=== PATIENT | male | born 1980 | race African-American/Black ===

== ENCOUNTER 2016-06-15 13:38 | Emergency (ER) | payer OTHER ==
[2016-06-15] MEDS ORDERED: ZOFRAN IV ONE (15:54)
[2016-06-15] MEDS ORDERED: NS 1,000 ML IV ONE (15:54)
[2016-06-15 16:01] LABS: MANUAL DIFF NEEDED? NO
--- NOTE | 2016-06-15 16:02 | PROVIDER DOCUMENTATION ---
HPI-General Adult - General Chief Complaint: N/V/D Stated Complaint: n/v abd pain Time Seen by Provider: 06/15/16 15:18 Source: patient Allergies/Adverse Reactions: Patient Allergies Allergy/AdvReac Type Severity Reaction Status Date / Time carisoprodol [From Soma] Allergy Severe ANAPHYLAXIS Verified 05/05/16 10:56 ibuprofen Allergy Intermediate SWELLING Verified 05/05/16 10:56 Home Medications: Lisinopril 20 mg PO DAILY 06/15/16 - History of Present Illness -Gen Adult Nature of Presenting Problems: Pt is a 36 yom who came to the ED with a cc of N/V/D and abdominal pain. Pt reports he waited for four days until he came to the ED. Pt reports he has blood in his vomit and stool. Location of Pain/Injury: reports: abdomen Pain Radiation: reports: no radiation Quality of Pain: reports: cramping Severity: reports: mild Onset/Duration: reports: 4 days ago Timing: reports: still present Context/Activities at Onset: reports: none Modifying Factors: improves with: defecating, vomiting Associated Symptoms: reports: diarrhea, nausea, vomiting Similar Symptoms Previously?: No Recently seen or treated by another doctor?: No Review of Systems - Adult - REVIEW OF SYSTEMS - ADULT Constitutional: denies: chills, fever Eyes: reports: no symptoms reported Ears, Nose, Mouth & Throat: denies: sinus problem, loose teeth Cardiovascular: reports: no symptoms reported Respiratory: denies: pleurisy, wheezing Gastrointestinal: reports: diarrhea, nausea, vomiting. denies: difficulty swallowing, frequent heartburn, rectal bleeding Genitourinary: reports: no symptoms reported Musculoskeletal: denies: joint pain, muscle aches Integumentary: reports: no symptoms reported Neurological: reports: no symptoms reported Psychiatric: reports: no symptoms reported Endocrine: reports: no symptoms reported Hematologic/Lymphatic: reports: no symptoms reported Allergic/Immunologic: reports: no symptoms reported All Other Systems: Reviewed and Negative Past History - Adult - PAST MEDICAL HISTORY-ADULT Review of Records: reports: Old Records Reviewed, Nursing Assessment Review Major Childhood Illnesses: reports: denies history Cardiovascular: reports: HTN, hyperlipidemia Respiratory: reports: denies history Gastrointestinal: reports: GERD Obstetrical/Gynecological: reports: denies history Genitourinary: reports: denies history Musculoskeletal: reports: chronic pain Neurological: reports: headaches/migraines Psychiatric: reports: anxiety (social), depression Endocrine/Immune: reports: Diabetes Other Conditions: reports: denies history Additional History: freq ER visits - PRIOR SURGERIES/PROCEDURES Surgical/Procedure History: reports: other (craniotomy as child) - IMMUNIZATION STATUS Childhood Immunizations: See Nurse Assessment Flu Vaccine: See Nurse Assessment - FAMILY HISTORY Family History: reviewed, not pertinent Physical Exam-General - PHYSICAL EXAM-ADULT Initial Vital Signs Reviewed: Yes - CONSTITUTIONAL General Appearance: appears well, alert, no apparent distress - EYES Eyes: PERRL/EOMI, pink conjunctivae - HEAD, EARS, NOSE, MOUTH & THROAT HENMT: normocephalic/atraumatic, moist mucous membranes, normal ENT inspection - NECK Neck: non-tender, full range of motion, normal inspection - RESPIRATORY Respiratory: chest non-tender, lungs clear, normal breath sounds - CARDIOVASCULAR Cardiovascular: normal peripheral pulses, regular rate, rhythm, no edema - GASTROINTESTINAL (ABDOMEN) Abdominal Exam: normal bowel sounds, non tender, soft - LYMPHATIC Lymphatic: no adenopathy - MUSCULOSKELETAL Back Exam: normal inspection, no CVA tenderness, no vertebral tenderness Extremity: normal range of motion, non-tender, normal gait - SKIN Integumentary: normal color, normal turgor, warm/dry - NEUROLOGIC Neurologic: grossly normal, no motor/sensory deficits - PSYCHIATRIC Psych/Mental Status: normal mood/affect, normal thought content, normal thought process, oriented x 3 Progress - PLAN OF CARE/RESULTS Progress/Plan/Lab Results: Vital Signs - 24 hr 06/15/16 13:44 Temperature 98.0 F Pulse Rate 72 Respiratory 18 Rate Blood Pressure 156/104 O2 Sat by Pulse 100 Oximetry Orders Category Date Time Status Saline Loc NOW Care 06/15/16 15:54 Active NPO Diet 06/15/16 13:47 Active ALCOHOL BLOOD Stat Lab 06/15/16 15:54 Uncollected AMYLASE [CHEM] Stat Lab 06/15/16 15:46 Ordered CBC WITH ELECTRONIC DIFF [HEME] Stat Lab 06/15/16 15:46 Ordered COMPREHENSIVE METABOLIC PANEL [CHEM] Stat Lab 06/15/16 15:46 Ordered LIPASE [CHEM] Stat Lab 06/15/16 15:46 Ordered MAGNESIUM [CHEM] Stat Lab 06/15/16 15:54 Uncollected OCCULT BLOOD DIAGNOSTIC [STOOL] Stat Lab 06/15/16 15:53 Ordered PROTIME WITH INR [COAG] Stat Lab 06/15/16 15:54 Uncollected PTT [COAG] Stat Lab 06/15/16 15:54 Uncollected UA NIMS W/REFLEX CULT [URINALYSIS] Stat Lab 06/15/16 15:55 Uncollected URINALYSIS [URINALYSIS] Stat Lab 06/15/16 13:47 Uncollected URINE DRUG SCREEN Stat Lab 06/15/16 15:55 Uncollected 0.9% Sodium Chloride Inj [Ns] 1,000 ml Med 06/15/16 15:54 Active IV 999 mls/hr Ondansetron [Zofran] Med 06/15/16 15:54 Discontinued 8 mg IV NOW ONE Departure - Departure Time of Disposition Order: 17:53 DIAGNOSIS: GI bleed Qualifiers: GI bleed type/associated pathology: unspecified peptic ulcer Qualified Code(s) : K27.4 - Chronic or unspecified peptic ulcer, site unspecified, with hemorrhage Disposition: HOME 01 Certified Medical Emergency: Emergent Condition: Good Referrals: None,PCP [Primary Care Provider] - Farhan Bashir MD [STAFF PHYSICIAN] - Attestation - Scribe Verification/Attestation Scribe:: Celina Blue Acting as Scribe for:: Luh Albright Scribe documention review:: This chart was documented by a scribe and accurately reflects the service the provider performed and the decisions made by the provider.
[2016-06-15 16:07] LABS: BASO% 0.1 % (0.0-0.8); EOS# 0.01 X1000 (0.0-0.7); EOS% 0.1 % (0.0-10.0); HEMATOCRIT 52.5 % (42.0-52.0); HEMOGLOBIN 18.3 g/dL (14.0-18.0); IMM GRAN# 0.03 X1000 (0.0-0.04); IMM GRAN% 0.4 % (0.0-0.5); LYMPH# 1.29 X1000 (1.2-3.4); LYMPH% 15.7 % (20.5-51.1); MCH 31.9 PG (27-31); MCHC 34.9 g/dL (33-37); MCV 91.6 FL (81-99); MONO# 0.32 X1000 (0.11-0.59); MONO% 3.9 % (1.7-9.3); MPV 10.5 FL (7.4-10.4); NEUT% 79.8 % (42.2-75.2); PLT 247 X1000 (130-400); RBC 5.73 XMIL (4.7-6.1)
[2016-06-15 16:15] LABS: INR 1.06; PROTIME 11.2 Seconds (9.2-11.7)
[2016-06-15 16:37] LABS: AGAP 15; ALBUMIN 4.7 g/dL (3.5-5.0); ALKALINE PHOSPHATASE 73 U/L (32-122); AMYLASE 79 U/L (20-200); BUN 12 mg/dL (8-22); CALCIUM 9.3 mg/dL (8.8-10.2); CHLORIDE 94 mmol/L (98-107); COSMO 266; GOT 15 U/L (10-34); GPT 13 U/L (10-44); LIPASE 20 U/L (13-60); POTASSIUM 3.3 mmol/L (3.5-5.1); SODIUM 133 mmol/L (136-145); TCO2 24 mmol/L (25-35); TOTAL BILIRUBIN 0.56 mg/dL (0.20-1.00); TOTAL PROTEIN 8.3 g/dL (6.3-8.3)
[2016-06-15] MEDS ORDERED: KLOR-CON PO ONE (17:50)
[2016-06-15 17:51] LABS: URINE CULTURE NEEDED? NO; URINE MICRO REVIEW NEEDED? NO; URINE SOURCE CLEAN CATCH
[2016-06-15 18:02] LABS: BILIRUBIN URINE NEGATIVE (NEGATIVE); BLOOD URINE NEGATIVE (NEGATIVE); COLOR YELLOW; GLUCOSE URINE NEGATIVE (NEGATIVE); LEUKOCYTES URINE NEGATIVE (NEGATIVE); NITRITE URINE NEGATIVE (NEGATIVE); PROTEIN URINE TRACE mg/dL (NEGATIVE); SP GRAVITY URINE 1.025; TURBIDITY URINE CLEAR (CLEAR); UROBILINOGEN URINE NORMAL (NORMAL)
[2016-06-15 18:03] LABS: UR EPITHELIAL CELLS <10 /HPF (<10); URINE BACTERIA NEGATIVE /HPF; URINE RBC <10 /HPF (<10); URINE WBC <10 /HPF (<10)
[2016-06-15 18:18] LABS: UR AMPHETAMINES QUAL NONE DETECTED (NONE DETECT); UR BARBITUATES QUAL NONE DETECTED (NONE DETECT); UR BENZODIAZEPIN QUAL NONE DETECTED (NONE DETECT); UR CANNABINOIDS QUAL PRESUMPTIVE POSITIVE (NONE DETECT); UR COCAINE QUAL NONE DETECTED (NONE DETECT); UR METHADONE QUAL NONE DETECTED (NONE DETECT); UR OPIATES QUAL NONE DETECTED (NONE DETECT); UR OXYCODONE QUAL NONE DETECTED (NONE DETECT); UR PCP QUAL NONE DETECTED (NONE DETECT)
[2016-06-15] MEDS ORDERED: KLOR-CON ONE (19:02)
[2016-06-15 19:22] VITALS: BP 148/92
== END 2016-06-15 20:04 | disposition home or self-care (01) ==
LOC: EDBD → ED 13:38
DX: K27.4 Chronic or unspecified peptic ulcer, site unspecified, with hemorrhage (principal); R11.2 Nausea with vomiting, unspecified; R19.7 Diarrhea, unspecified; R10.9 Unspecified abdominal pain; I10 Essential (primary) hypertension; E78.5 Hyperlipidemia, unspecified; E11.9 Type 2 diabetes mellitus without complications; G89.29 Other chronic pain; Z79.899 Other long term (current) drug therapy; R51 Headache
CPT/HCPCS: 36415; 80053; 81001; 82150; 82272; 83690; 83735; 85025; 85610; 85730; 96374; G0480; J2405; J7030

== ENCOUNTER 2016-08-18 16:15 | Emergency (ER) | payer OTHER ==
[2016-08-18 16:45] VITALS: BP 153/115
--- NOTE | 2016-08-18 17:38 | PROVIDER DOCUMENTATION ---
HPI-Headache - General Chief Complaint: Headache Stated Complaint: FALL/HEAD INJURY Time Seen by Provider: 08/18/16 17:27 Source: patient Allergies/Adverse Reactions: Patient Allergies Allergy/AdvReac Type Severity Reaction Status Date / Time carisoprodol [From Soma] Allergy Severe ANAPHYLAXIS Verified 08/18/16 17:39 ibuprofen Allergy Intermediate SWELLING Verified 08/18/16 17:39 Home Medications: Home Medication List Medication Instructions Recorded Confirmed Last Taken Type Lisinopril 20 mg PO DAILY 06/15/16 08/18/16 08/18/16 06:00 History Labetalol [Trandate] 100 mg PO BID 06/30/16 08/18/16 08/18/16 06:00 History Prochlorperazine Maleate 5 mg PO Q4H PRN PRN #10 tablet 08/18/16 Unknown Rx [Compazine] - History of Present Illness-Headache Nature of Presenting Problem: This pt presents to ED with c/o headache that started yesterday afternoon when he fell walking to the store. Pt reports positive LOC. However, he is neurologically intact, alert and oriented x3, speech clear and intact. There is no obvious injury noted. No other issues or complaints. Headache Location: reports: temporal (R) Quality of Pain: reports: aching Severity: reports: moderate Onset/Duration: reports: last night Timing: reports: still present Headache Context: reports: head injury Any recent trauma/injury?: reports: minor, to head Headache severity at the maximum: moderate Headache Exacerbated by:: reports: light Associated Symptoms: reports: dizziness, fatigue Similar Symptoms Previously?: No Recently seen or treated by another doctor?: No Review of Systems - Adult - REVIEW OF SYSTEMS - ADULT Constitutional: reports: jennifer. denies: chills, fever Eyes: reports: no symptoms reported. denies: discharge, dry eyes Ears, Nose, Mouth & Throat: reports: no symptoms reported. denies: ear discharge, ear pain Cardiovascular: reports: no symptoms reported. denies: chest pain, edema Respiratory: reports: no symptoms reported. denies: chronic cough, cough Gastrointestinal: reports: no symptoms reported. denies: abdominal pain, hematemesis Genitourinary: reports: no symptoms reported. denies: dysuria, discharge Musculoskeletal: reports: no symptoms reported. denies: bone pain, back pain Integumentary: reports: no symptoms reported. denies: hives, hair loss Neurological: reports: dizziness/vertigo, headache/migraines. denies: ataxia, numbness, paresthesia Psychiatric: reports: no symptoms reported. denies: anxiety, anti-depressant use Endocrine: reports: no symptoms reported Hematologic/Lymphatic: reports: no symptoms reported Allergic/Immunologic: reports: no symptoms reported All Other Systems: Reviewed and Negative Past History - Adult - PAST MEDICAL HISTORY-ADULT Review of Records: reports: Old Records Reviewed, Nursing Assessment Review, Medications Reviewed, Social history reviewed & non-contributory. Major Childhood Illnesses: reports: denies history Cardiovascular: reports: denies history Respiratory: reports: denies history Gastrointestinal: reports: denies history Obstetrical/Gynecological: reports: denies history Genitourinary: reports: denies history Musculoskeletal: reports: denies history Neurological: reports: denies history Psychiatric: reports: anxiety (social), depression Endocrine/Immune: reports: denies history Other Conditions: reports: denies history Additional History: freq ER visits - PRIOR SURGERIES/PROCEDURES Surgical/Procedure History: reports: other (craniotomy as child) - IMMUNIZATION STATUS Childhood Immunizations: See Nurse Assessment Flu Vaccine: See Nurse Assessment - FAMILY HISTORY Family History: reviewed, not pertinent Physical Exam- Neurological - Physical Exam-Neuro Initial Vital Signs Reviewed: Yes General Appearance: appears well, alert, no apparent distress Eye Exam: bilateral eye: normal inspection, PERRL, EOMI HENMT: normocephalic/atraumatic, moist mucous membranes, normal ENT inspection Head Injury: no evidence of injury Neck: non-tender, full range of motion, supple, normal inspection Respiratory: chest non-tender, lungs clear, normal breath sounds, no pleuratic chest pain, no respiratory distress, no accessory muscle use Cardiovascular: normal peripheral pulses, regular rate, rhythm, no edema, no gallop, no JVD, no murmur Abdominal Exam: normal bowel sounds, non tender, soft, no organomegaly, no pulsatile mass Extremity: normal range of motion, non-tender, normal gait, 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 negative: abnormal speech, facial asymmetry, facial droop, facial paresthesias, facial weakness, gaze palsy , tongue deviation to R, tongue deviation to L Motor/Sensory: no motor deficit, no sensory deficit, no pronator drift. 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 negative: facial droop, focal weakness, motor weakness, sensory deficit Integumentary: normal color, normal turgor, warm/dry Psych/Mental Status: normal mood/affect, normal thought content, normal thought process, oriented x 3 - Glascow Coma Scale Best Eye Response: (4) open spontaneously Best Verbal Response: (5) oriented Best Motor Response: (6) obeys commands Total Glascow Score: 15 Progress - PLAN OF CARE/RESULTS Progress/Plan/Lab Results: Orders Category Date Time Status HEAD W/O CONTRAST [CT] Stat Exams 08/18/16 17:38 Taken Vital Signs Temp Pulse Resp BP Pulse Ox 08/18/16 16:41 98.7 F 104 H 20 153/115 99 carisoprodol [From Soma] Allergy (Severe, Verified 08/18/16 17:39) ANAPHYLAXIS ibuprofen Allergy (Intermediate, Verified 08/18/16 17:39) SWELLING Lisinopril 20 mg PO DAILY 06/15/16 Labetalol [Trandate] 100 mg PO BID 06/30/16 - CT/MRI 1 CT Study: Head CT Results: nad Departure - Departure Time of Disposition Order: 18:46 DIAGNOSIS: Head injury with loss of consciousness Headache Qualifiers: Headache type: post-traumatic Headache chronicity pattern: unspecified pattern Intractability: not intractable Qualified Code(s): G44.309 - Post-traumatic headache, unspecified, not intractable Disposition: HOME 01 Certified Medical Emergency: Emergent Condition: Good Additional Instructions: Take medication as prescribed. Follow up with your primary care provider. ED Follow Up Instructions: You have been treated by a care provider in the Emergency Department. These instructions are being provided to you so you can have an understanding of how to care for yourself upon discharge. Upon discharge from the Emergency Department, you are responsible for making arrangements for follow-up care by a physician of your choice. Take all prescribed medications as directed. Return to the Emergency Department immediately for any new or worsening symptoms. You may call the Physician Referral phone number at [phone] to obtain a list of Physicians who are taking new patients. Prescriptions: Prochlorperazine Maleate [Compazine] 5 mg PO Q4H PRN PRN #10 tablet PRN Reason: Headaches Instructions: Migraine Headache, [id number] Attestation - Physician/ ZELDA Attestation Patient care was provided by Advanced Practice Provider:: Yes Advanced Practice Provider:: Jaspal Neumann Advanced Practice Provider documentation review:: The Mid-level provider documentation, treatment plan and medical decision making was reviewed by the physician who agrees with all treatment and medical decision making by the MLP.
--- NOTE | 2016-08-18 19:02 | Diag Imaging Result Document ---
PROCEDURE NAME: HEAD W/O CONTRAST - 08/18/2016 STUDY: CT brain without contrast. COMPARISON: Compared to 09/10/2015. No parenchymal hemorrhage. No epidural or subdural hematoma. No subarachnoid hemorrhage. No skull fracture. No hydrocephalus. No sinus opacification. IMPRESSION: No hemorrhage. No injury. A preliminary report was given at 6:25 p.m.
== END 2016-08-18 19:32 | disposition home or self-care (01) ==
LOC: ED 16:15
DX: S06.9X9A Unspecified intracranial injury with loss of consciousness of unspecified duration, initial encounter (principal); G44.309 Post-traumatic headache, unspecified, not intractable; W19.XXXA Unspecified fall, initial encounter; R42 Dizziness and giddiness; R53.83 Other fatigue; F41.8 Other specified anxiety disorders; F32.9 Major depressive disorder, single episode, unspecified; Z79.899 Other long term (current) drug therapy
CPT/HCPCS: 70450